=== PATIENT | male | born 1975 | race Caucasian/White ===

== ENCOUNTER 2022-05-05 18:43 | Inpatient (IN) | payer OTHER ==
[2022-05-05 19:29] VITALS: BMI 22.3
[2022-05-05] MEDS ORDERED: POLYETHYLENE GLYCOL (HEALTHYLAX) 3350 17 GM PACKET PO PRN (20:55)
[2022-05-05] MEDS ORDERED: MAG HYDROX/AL HYDROX/SIMETH 30 ML UNIT-DOSE CUP PO PRN (20:55)
[2022-05-05] MEDS ORDERED: BENZOCAINE/MENTHOL (CHLORASEPTIC ) LOZENGE MM PRN (20:55)
[2022-05-05] MEDS ORDERED: BISMUTH SUBSALICYLATE 524 MG/30 ML PO PRN (20:55)
[2022-05-05] MEDS ORDERED: P-EPHED 60MG/TRIPROLIDI 2.5MG TABLET PO PRN (20:55)
[2022-05-05] MEDS ORDERED: IBUPROFEN 400 MG TABLET (FP) PO PRN (20:55)
[2022-05-05] MEDS ORDERED: MAGNESIUM HYDROX 2400MG/30ML ORAL SUSPENSION 30 ML CUP PO PRN (20:55)
[2022-05-05] MEDS ORDERED: DICYCLOMINE HCL 10 MG CAPSULE PO PRN (20:55)
[2022-05-05] MEDS ORDERED: ACETAMINOPHEN 325 MG TABLET (FP) PO PRN ×2 (20:55)
[2022-05-05] MEDS ORDERED: NALOXONE HCL (KLOXXADO) 8 MG SPRAY NS PRN (20:55)
[2022-05-05] MEDS ORDERED: NICOTINE 10 MG CARTRIDGE (INHALER) IH PRN (20:55)
[2022-05-05] MEDS ORDERED: IBUPROFEN 600 MG TABLET (FP) PO PRN (20:55)
[2022-05-05] MEDS ORDERED: guaiFENesin 200 MG/10 ML 10 ML UNIT-DOSE CUPS PO PRN (20:55)
[2022-05-05] MEDS ORDERED: ONDANSETRON *ODT* 4 MG TABLET SL PRN (20:55)
[2022-05-05] MEDS ORDERED: NALOXONE HCL 0.4 MG/ML VIAL IM PRN (20:55)
[2022-05-05] MEDS: MELATONIN 5 MG TABLETS PO SCH (23:05)
[2022-05-05] MEDS: THIAMINE HCL 100 MG TABLET (FP) PO SCH (23:05)
[2022-05-05] MEDS ORDERED: ALBUTEROL SO4 HFA INHALER IH PRN (23:09)
[2022-05-05] MEDS: diazePAM 5 MG TABLET PO SCH (23:14)
[2022-05-06] MEDS: diazePAM 5 MG TABLET PO SCH ×4 (07:14→22:44)
[2022-05-06] MEDS ORDERED: methaDONE HCL 10 MG TABLET PO SCH (07:28)
[2022-05-06] MEDS ORDERED: cloNIDine HCL 0.1 MG TABLET PO PRN (10:12)
[2022-05-06] MEDS: ASPIRIN COATED 81 MG TABLET.EC PO SCH (10:38)
[2022-05-06] MEDS: METHOCARBAMOL 500 MG TABLET PO PRN (10:39)
[2022-05-06] MEDS: NICOTINE 14 MG/24 HOURS TOPICAL PATCH TD SCH (10:39)
[2022-05-06] MEDS: PRENATAL VITAMINS W/ FOLIC ACID TABLET (FP) PO SCH (10:42)
[2022-05-06] MEDS: metoPROLOL SUCCINATE 25 MG TAB.SR.24H (FP) PO SCH (11:14)
[2022-05-06] MEDS: COLCHICINE 0.6 MG TAB PO SCH (11:14)
[2022-05-06] MEDS: ATORVASTATIN CA 40 MG TABLET (FP) PO SCH (22:44)
[2022-05-06] MEDS: THIAMINE HCL 100 MG TABLET (FP) PO SCH (22:44)
[2022-05-06] MEDS: MELATONIN 5 MG TABLETS PO SCH (22:44)
[2022-05-07] MEDS: diazePAM 5 MG TABLET PO SCH ×3 (05:46→22:16)
[2022-05-07] MEDS: diazePAM 5 MG TABLET PO PRN ×2 (10:19→17:29)
[2022-05-07] MEDS: PRENATAL VITAMINS W/ FOLIC ACID TABLET (FP) PO SCH (10:19)
[2022-05-07] MEDS: ASPIRIN COATED 81 MG TABLET.EC PO SCH (10:19)
[2022-05-07] MEDS: NICOTINE 14 MG/24 HOURS TOPICAL PATCH TD SCH (10:21)
[2022-05-07] MEDS: COLCHICINE 0.6 MG TAB PO SCH (11:06)
[2022-05-07] MEDS: metoPROLOL SUCCINATE 25 MG TAB.SR.24H (FP) PO SCH (11:06)
[2022-05-07 19:46] LABS: URINE APPEARANCE CLEAR; URINE BILIRUBIN NEGATIVE (NEGATIVE); URINE COLOR YELLOW; URINE GLUCOSE (UA) NEGATIVE (NEGATIVE); URINE KETONE NEGATIVE (NEGATIVE); URINE LEUK ESTERASE NEGATIVE (NEGATIVE); URINE NITRITE NEGATIVE (NEGATIVE); URINE PROTEIN NEGATIVE (NEGATIVE); URINE UROBILINOGEN 0.2 mg/dL (0.2-1.0)
[2022-05-07] MEDS: MELATONIN 5 MG TABLETS PO SCH (22:15)
[2022-05-07] MEDS: METHOCARBAMOL 500 MG TABLET PO PRN (22:16)
[2022-05-07] MEDS: hydrOXYzine PAMOATE 25 MG CAPSULE (FP) PO PRN (22:16)
[2022-05-07] MEDS: ATORVASTATIN CA 40 MG TABLET (FP) PO SCH (22:16)
[2022-05-07] MEDS: THIAMINE HCL 100 MG TABLET (FP) PO SCH (22:16)
[2022-05-08] MEDS: diazePAM 5 MG TABLET PO PRN ×4 (02:05→20:01)
[2022-05-08] MEDS: diazePAM 5 MG TABLET PO SCH ×2 (05:47→17:28)
[2022-05-08] MEDS: COLCHICINE 0.6 MG TAB PO SCH (10:19)
[2022-05-08] MEDS: PRENATAL VITAMINS W/ FOLIC ACID TABLET (FP) PO SCH (10:19)
[2022-05-08] MEDS: ASPIRIN COATED 81 MG TABLET.EC PO SCH (10:19)
[2022-05-08] MEDS: NICOTINE 14 MG/24 HOURS TOPICAL PATCH TD SCH (10:19)
[2022-05-08] MEDS: metoPROLOL SUCCINATE 25 MG TAB.SR.24H (FP) PO SCH (10:19)
[2022-05-08] MEDS: LOPERAMIDE HCL 2 MG CAPSULE PO PRN ×2 (14:49→22:07)
[2022-05-08 18:10] VITALS: RESP 18
[2022-05-08] MEDS: MELATONIN 5 MG TABLETS PO SCH (22:06)
[2022-05-08] MEDS: ATORVASTATIN CA 40 MG TABLET (FP) PO SCH (22:06)
[2022-05-08] MEDS: THIAMINE HCL 100 MG TABLET (FP) PO SCH (22:06)
[2022-05-08] MEDS: hydrOXYzine PAMOATE 25 MG CAPSULE (FP) PO PRN (22:08)
[2022-05-09] MEDS ORDERED: diazePAM 5 MG TABLET PO ONE (06:00)
[2022-05-09 09:32] VITALS: TEMP 97.3
[2022-05-09 10:07] VITALS: BP 118/64; PULSE 74
[2022-05-09] MEDS: COLCHICINE 0.6 MG TAB PO SCH (10:36)
[2022-05-09] MEDS: METHOCARBAMOL 500 MG TABLET PO PRN (10:36)
[2022-05-09] MEDS: NICOTINE 14 MG/24 HOURS TOPICAL PATCH TD SCH (10:36)
[2022-05-09] MEDS: metoPROLOL SUCCINATE 25 MG TAB.SR.24H (FP) PO SCH (10:36)
[2022-05-09] MEDS: ASPIRIN COATED 81 MG TABLET.EC PO SCH (10:36)
[2022-05-09] MEDS: PRENATAL VITAMINS W/ FOLIC ACID TABLET (FP) PO SCH (10:36)
== END 2022-05-09 10:57 | disposition home or self-care (01) | DRG 773 ==
LOC: YASAS 18:43 → Y6N 21:19
PROVIDERS: ADMIT Allergy & Immunology; ATTEND Family Medicine Addiction Medicine
PROC: HZ2ZZZZ Detoxification Services for Substance Abuse Treatment (ICD-10-PCS; principal; 2022-05-05)
DX: F10.230 Alcohol dependence with withdrawal, uncomplicated (principal); F11.20 Opioid dependence, uncomplicated; F14.20 Cocaine dependence, uncomplicated; F17.210 Nicotine dependence, cigarettes, uncomplicated; F19.24 Other psychoactive substance dependence with psychoactive substance-induced mood disorder; F41.9 Anxiety disorder, unspecified; F32.A Depression, unspecified; F43.10 Post-traumatic stress disorder, unspecified; I25.10 Atherosclerotic heart disease of native coronary artery without angina pectoris; Z95.1 Presence of aortocoronary bypass graft; J45.20 Mild intermittent asthma, uncomplicated; B18.2 Chronic viral hepatitis C; M54.50 Low back pain, unspecified; G89.29 Other chronic pain; Z86.69 Personal history of other diseases of the nervous system and sense organs; Z91.013 Allergy to seafood; Z28.310 Unvaccinated for COVID-19; Z28.9 Immunization not carried out for unspecified reason
CPT/HCPCS: 81003; 87811; 93005; 93010; C9803-CS; U0003; U0005